=== PATIENT | male | born 1940 | race Caucasian/White ===

== ENCOUNTER 2017-03-14 17:07 | Outpatient (CLI) | payer MEDICARE, OTHER ==
[2017-03-14 17:28] LABS: BILIRUBIN,URINE NEGATIVE (NEGATIVE)
[2017-03-14 17:31] LABS: BASOPHILS # (AUTO) 0.1 10^3/uL (0.0-0.1); BASOPHILS % (AUTO) 0.8 %; EOSINOPHILS # (AUTO) 0.2 10^3/uL (0.0-0.7); EOSINOPHILS % (AUTO) 2.1 %; HCT - HEMATOCRIT 45.9 % (42.0-52.0); HGB - HEMOGLOBIN 15.8 g/dL (14.0-18.0); LYMPHOCYTES # (AUTO) 3.3 10^3/uL (1.5-3.5); LYMPHOCYTES % (AUTO) 41.2 %; MEAN CORPUSCULAR HEMOGLOBIN 34.1 pg (27.0-31.0); MEAN CORPUSCULAR HGB CONC 34.4 g/dL (32.0-36.0); MEAN CORPUSCULAR VOLUME 99.1 fL (80.0-94.0); MEAN PLATELET VOLUME 7.3 fL (7.4-11.4); MONOCYTES # (AUTO) 0.8 10^3/uL (0.0-1.0); MONOCYTES % (AUTO) 10.7 %; NEUTROPHILS # (AUTO) 3.6 10^3/uL (1.5-6.6); NEUTROPHILS % (AUTO) 45.2 %; NUCLEATED RED BLOOD CELLS AUTO 0.1 /100WBC; RED BLOOD COUNT 4.64 10^6/uL (4.70-6.10); RED CELL DISTRIBUTION WIDTH 12.7 % (12.0-15.0)
[2017-03-14 17:35] LABS: WBC,URINE 0-3 /HPF (0-3)
[2017-03-14 17:36] LABS: UR CULTURE IF IND NOT INDICATED
[2017-03-14 17:46] LABS: ALBUMIN/GLOBULIN RATIO 1.7 (1.0-2.2); BILIRUBIN,TOTAL 0.7 mg/dL (0.2-1.0); BUN - BLOOD UREA NITROGEN 24 mg/dL (6-20); CALCIUM 8.8 mg/dL (8.5-10.3); CARBON DIOXIDE - CO2 29 mmol/L (21-32); CHLORIDE 101 mmol/L (101-111); CREATININE 0.9 mg/dL (0.6-1.2); GFR - MDRD 82 (>89); GLUCOSE 112 mg/dL (70-100); POTASSIUM 3.7 mmol/L (3.5-5.0); SODIUM 137 mmol/L (135-145); TOTAL PROTEIN 7.5 g/dL (6.7-8.2)
== END 2017-03-14 17:08 | disposition home or self-care (01) ==
LOC: LAB 17:07
PROVIDERS: ATTEND Physician Assistant Medical
DX: R82.99 Other abnormal findings in urine (principal); R10.9 Unspecified abdominal pain
CPT/HCPCS: 36415; 80053; 81001; 81003; 85025; 85651; 86140; 87086

== ENCOUNTER 2017-03-16 10:41 | Outpatient (CLI) | payer MEDICARE, OTHER ==
[2017-03-16] MEDS ORDERED: IOPAMIDOL-300 100 ML VIAL ONE (11:09)
[2017-03-16] MEDS ORDERED: IOPAMIDOL-300 50 ML VIAL ONE (11:09)
[2017-03-16] MEDS ORDERED: IOPAMIDOL-300 100 ML VIAL IVP ONE (11:43)
--- NOTE | 2017-03-16 17:07 | CT Report ---
CT IVP: 03/16/2017 CLINICAL INDICATION: Hematuria. Axial CT images of the abdomen and pelvis were obtained prior to and following 100 mL Isovue-300 intr avenously, using split bolus technique. In accordance with CT protocol optimization, one or more of the following dose reduction techniques w ere utilized for this exam: automated exposure control, adjustment of mA and/or KV based on patient size, or use of iterative reconstructive technique. Limited evaluation of the lung bases demonstrates mild fibrosis. ABDOMEN: On the unenhanced images, there is a 2 mm calculus in the lower pole of the left kidney, wi thout evidence of hydronephrosis. The kidneys demonstrate prompt and symmetric uptake and excretion of contrast. Cortical cyst is noted in the upper pole of the left kidney. No solid renal lesion or collecting system lesion is appreciated. Allowing for phase of contrast enhancement, the liver, sple en, pancreas, and adrenal glands are unremarkable. The gallbladder is unremarkable. No bowel dilata tion, free gas, or free fluid is present. No abdominal adenopathy is seen. PELVIS: The distal ureters are unremarkable. The prostate indents the base of the bladder, but othe rwise the urinary bladder appears unremarkable. No pelvic free fluid or adenopathy is appreciated. A few sigmoid diverticula are seen, without CT evidence of diverticulitis. Osseous structures demonstrate degenerative changes. IMPRESSION: A 2 MM NONOBSTRUCTING LEFT RENAL CALCULUS. NO EVIDENCE OF SOLID RENAL MASS OR COLLECTIN G SYSTEM MASS. JOB #: [id number] EXT JOB #:[id number]
== END 2017-03-16 10:42 | disposition home or self-care (01) ==
LOC: DI 10:41
PROVIDERS: ATTEND Physician Assistant Medical
DX: N20.0 Calculus of kidney (principal)
CPT/HCPCS: 74178; Q9967

== ENCOUNTER 2017-03-27 08:00 | Outpatient (CLI) | payer MEDICARE, OTHER ==
[2017-03-27 15:05] LABS: CHOL/HDL RATIO 3.3 (<5.0); CHOLESTEROL 168 mg/dL; HDL CHOLESTEROL 51 mg/dL; LDL/HDL RATIO 1.9 (<3.6); TRIGLYCERIDES 88 mg/dL; VLDL CHOLESTEROL 18 mg/dL
[2017-03-27 16:55] LABS: HEMOGLOBIN A1C 0.57 g/dL
== END 2017-03-27 08:01 | disposition home or self-care (01) ==
LOC: LAB.R 08:00
PROVIDERS: ATTEND Physician Assistant Medical
DX: N40.0 Benign prostatic hyperplasia without lower urinary tract symptoms (principal); Z79.899 Other long term (current) drug therapy; R73.9 Hyperglycemia, unspecified; E55.9 Vitamin D deficiency, unspecified
CPT/HCPCS: 80061; 82306; 83036; 84153

== ENCOUNTER 2017-06-20 15:25 | Outpatient (CLI) | payer MEDICARE, OTHER ==
[2017-06-20 13:09] LABS: BASOPHILS % (AUTO) 0.7 %; EOSINOPHILS # (AUTO) 0.3 10^3/uL (0.0-0.7); EOSINOPHILS % (AUTO) 5.4 %; HGB - HEMOGLOBIN 15.4 g/dL (14.0-18.0); LYMPHOCYTES # (AUTO) 2.3 10^3/uL (1.5-3.5); LYMPHOCYTES % (AUTO) 38.7 %; MEAN CORPUSCULAR HEMOGLOBIN 33.8 pg (27.0-31.0); MEAN CORPUSCULAR HGB CONC 34.6 g/dL (32.0-36.0); MEAN CORPUSCULAR VOLUME 97.6 fL (80.0-94.0); MEAN PLATELET VOLUME 7.8 fL (7.4-11.4); MONOCYTES # (AUTO) 0.5 10^3/uL (0.0-1.0); MONOCYTES % (AUTO) 9.1 %; NEUTROPHILS # (AUTO) 2.7 10^3/uL (1.5-6.6); NEUTROPHILS % (AUTO) 46.1 %; PLT - PLATELET COUNT 187 10^3/uL (130-450); RED BLOOD COUNT 4.54 10^6/uL (4.70-6.10); RED CELL DISTRIBUTION WIDTH 12.3 % (12.0-15.0); WHITE BLOOD COUNT 5.8 x10^3/uL (4.8-10.8)
[2017-06-20 13:22] LABS: ALBUMIN 4.1 g/dL (3.2-5.5); ALBUMIN/GLOBULIN RATIO 1.3 (1.0-2.2); BILIRUBIN,TOTAL 0.8 mg/dL (0.2-1.0); CALCIUM 8.8 mg/dL (8.5-10.3); CREATININE 0.9 mg/dL (0.6-1.2); TOTAL PROTEIN 7.2 g/dL (6.7-8.2)
== END 2017-06-20 15:26 | disposition home or self-care (01) ==
LOC: LAB.R 15:25
PROVIDERS: ATTEND Physician Assistant Medical
DX: I10 Essential (primary) hypertension (principal); Z79.899 Other long term (current) drug therapy
CPT/HCPCS: 80053; 84443; 85025

== ENCOUNTER 2017-06-22 08:00 | Outpatient (CLI) | payer MEDICARE, OTHER ==
[2017-06-22 17:24] LABS: MEAN RETIC VALUE 105.9; RED BLOOD COUNT 4.51 10^6/uL (4.70-6.10)
[2017-06-22 18:36] LABS: FOLATE 14.67 ng/mL (5.90 - >24.8)
== END 2017-06-22 08:01 | disposition home or self-care (01) ==
LOC: LAB.R 08:00
PROVIDERS: ATTEND Physician Assistant Medical
DX: D75.89 Other specified diseases of blood and blood-forming organs (principal)
CPT/HCPCS: 82607; 82728; 82746; 83010; 85044; 86880

== ENCOUNTER 2018-03-20 08:46 | Outpatient (CLI) | payer MEDICARE, OTHER ==
[2018-03-20 09:13] LABS: BASOPHILS # (AUTO) 0.1 10^3/uL (0.0-0.1); BASOPHILS % (AUTO) 0.9 %; EOSINOPHILS # (AUTO) 0.2 10^3/uL (0.0-0.7); EOSINOPHILS % (AUTO) 4.1 %; HGB - HEMOGLOBIN 16.5 g/dL (14.0-18.0); LYMPHOCYTES # (AUTO) 2.6 10^3/uL (1.5-3.5); LYMPHOCYTES % (AUTO) 42.9 %; MEAN CORPUSCULAR HEMOGLOBIN 34.3 pg (27.0-31.0); MEAN CORPUSCULAR VOLUME 97.9 fL (80.0-94.0); MEAN PLATELET VOLUME 7.4 fL (7.4-11.4); MONOCYTES # (AUTO) 0.6 10^3/uL (0.0-1.0); MONOCYTES % (AUTO) 10.6 %; NEUTROPHILS # (AUTO) 2.5 10^3/uL (1.5-6.6); NEUTROPHILS % (AUTO) 41.5 %; PLT - PLATELET COUNT 188 10^3/uL (130-450); RED BLOOD COUNT 4.82 10^6/uL (4.70-6.10); RED CELL DISTRIBUTION WIDTH 12.6 % (12.0-15.0)
[2018-03-20 09:27] LABS: ALBUMIN 4.2 g/dL (3.2-5.5); ALBUMIN/GLOBULIN RATIO 1.4 (1.0-2.2); ALKALINE PHOSPHATASE 61 IU/L (42-121); ALT ALANINE AMINOTRANSFERASE 21 IU/L (10-60); AST ASPARTATE AMINOTRANSFERASE 24 IU/L (10-42); BUN - BLOOD UREA NITROGEN 21 mg/dL (6-20); CALCIUM 9.2 mg/dL (8.5-10.3); CARBON DIOXIDE - CO2 31 mmol/L (21-32); CHLORIDE 103 mmol/L (101-111); CHOL/HDL RATIO 3.7 (<5.0); CHOLESTEROL 194 mg/dL; CREATININE 0.9 mg/dL (0.6-1.2); GFR - MDRD 82 (>89); GLUCOSE 111 mg/dL (70-100); HDL CHOLESTEROL 53 mg/dL; LDL CHOLESTEROL,CALCULATED 126 mg/dL; LDL/HDL RATIO 2.4 (<3.6); SODIUM 141 mmol/L (135-145); TOTAL PROTEIN 7.3 g/dL (6.7-8.2); VLDL CHOLESTEROL 15 mg/dL
== END 2018-03-20 08:47 | disposition home or self-care (01) ==
LOC: LAB 08:46
PROVIDERS: ATTEND Physician Assistant Medical
DX: E55.9 Vitamin D deficiency, unspecified (principal); Z79.899 Other long term (current) drug therapy; Z12.5 Encounter for screening for malignant neoplasm of prostate; R00.2 Palpitations; I10 Essential (primary) hypertension
CPT/HCPCS: 36415; 80053; 80061; 82306; 84443; 85025; G0103; 83721; 84153

== ENCOUNTER 2018-06-16 09:27 | Emergency (ER) | payer MEDICARE, OTHER ==
[2018-06-16 10:21] LABS: BASOPHILS # (AUTO) 0.1 10^3/uL (0.0-0.1); BASOPHILS % (AUTO) 0.9 %; EOSINOPHILS # (AUTO) 0.2 10^3/uL (0.0-0.7); EOSINOPHILS % (AUTO) 3.8 %; HGB - HEMOGLOBIN 14.7 g/dL (14.0-18.0); LYMPHOCYTES % (AUTO) 31.5 %; MEAN CORPUSCULAR HEMOGLOBIN 34.8 pg (27.0-31.0); MEAN CORPUSCULAR HGB CONC 35.6 g/dL (32.0-36.0); MEAN CORPUSCULAR VOLUME 97.6 fL (80.0-94.0); MEAN PLATELET VOLUME 6.9 fL (7.4-11.4); MONOCYTES # (AUTO) 0.7 10^3/uL (0.0-1.0); MONOCYTES % (AUTO) 10.7 %; NEUTROPHILS # (AUTO) 3.5 10^3/uL (1.5-6.6); NEUTROPHILS % (AUTO) 53.1 %; PLT - PLATELET COUNT 165 10^3/uL (130-450); RED BLOOD COUNT 4.24 10^6/uL (4.70-6.10); RED CELL DISTRIBUTION WIDTH 12.4 % (12.0-15.0); WHITE BLOOD COUNT 6.5 x10^3/uL (4.8-10.8)
[2018-06-16 10:34] LABS: ALBUMIN 3.5 g/dL (3.2-5.5); ALBUMIN/GLOBULIN RATIO 1.3 (1.0-2.2); BILIRUBIN,TOTAL 1.3 mg/dL (0.2-1.0); CALCIUM 8.5 mg/dL (8.5-10.3); CREATININE 0.8 mg/dL (0.6-1.2); TOTAL PROTEIN 6.1 g/dL (6.7-8.2)
[2018-06-16 10:37] LABS: BILIRUBIN,URINE NEGATIVE (NEGATIVE); GLUCOSE, URINE (UA) NEGATIVE (NEGATIVE); KETONES,URINE (UA) NEGATIVE (NEGATIVE); LEUKOCYTE ESTERASE, URINE NEGATIVE (NEGATIVE); NITRITE,URINE NEGATIVE (NEGATIVE); OCCULT BLOOD,URINE NEGATIVE (NEGATIVE); PROTEIN,URINE NEGATIVE (NEGATIVE); UROBILINOGEN,URINE 0.2 (NORMAL) E.U./dL (NORMAL)
[2018-06-16 10:38] LABS: CLARITY,URINE CLEAR (CLEAR)
--- NOTE | 2018-06-16 11:13 | CT Report ---
Reason: dizzy Procedure Date: 06/16/2018 Accession Number: [id number] / [id number] Procedure: CT - Head W/O CPT Code: FULL RESULT: EXAM: CT HEAD EXAM DATE: 06/16/2018 10:42 AM. CLINICAL HISTORY: Dizzy. COMPARISON: None. TECHNIQUE: Multiaxial CT images were obtained from the foramen magnum to the vertex. Reformats: Sagittal and coronal. IV contrast: None. In accordance with CT protocol optimization, one or more of the following dose reduction techniques were utilized for this exam: automated exposure control, adjustment of mA and/or KV based on patient size, or use of iterative reconstructive technique. FINDINGS: Parenchyma: No intraparenchymal hemorrhage. No evidence of mass, midline shift, or CT findings of acute infarction. Verdin-white differentiation is distinct. Mild chronic microangiopathic white matter changes are evident. Extraaxial Spaces: Normal for age. No subdural or epidural collections identified. Ventricles: No hydrocephalus. No mass. No hemorrhage. Sinuses and orbits: Imaged paranasal sinuses, orbits, and mastoids show no significant abnormality. Bones: No evidence of fracture or calvarial defect. Other: None. IMPRESSION: 1. Subtle areas of low attenuation in deep white matter most likely representing chronic small vessel ischemic change. No associated positive mass-effect or loss of verdin-white differentiation. No other finding suspicious for acute or subacute stroke. Possibility of stroke not excluded on noncontrast CT. If indicated clinically, further assessment with MRI could also be considered. 2. Exam is otherwise as above. RADIA
--- NOTE | 2018-06-16 11:23 | ED Physician Documentation ---
History of Present Illness - Stated complaint Stated Complaint: NAUSEA/DIZZY - Chief complaint Chief Complaint: Abd Pain - History obtained from History obtained from: Patient, Family - History of Present Illness Timing: How many hours ago (4) Pain level max: 0 Pain level now: 0 - Additonal information Additional information: 77-year-old male with history of hypertension, borderline diabetes here with complaint of waking up at 3:00 in the morning to go to the bathroom feeling dizzy and associated with nausea And general weakness. Patient denies any associated fever, headaches or visual changes, Weakness on one side or difficulty speaking. Review of Systems Ten Systems: 10 systems reviewed and negative Constitutional: denies: Fever, Chills, Myalgias, Fatigue Eyes: denies: Loss of vision, Decreased vision Nose: denies: Rhinorrhea / runny nose Cardiac: denies: Chest pain / pressure Respiratory: denies: Dyspnea, Cough GI: reports: Nausea. denies: Abdominal Pain, Vomiting, Diarrhea : denies: Dysuria, Frequency Musculoskeletal: denies: Neck pain, Back pain, Extremity pain Neurologic: reports: Generalized weakness. denies: Focal weakness, Numbness, Difficulty speaking, Near syncope, Syncope, Confused, Altered mental status, Unresponsive, Headache, Head injury, LOC PD PAST MEDICAL HISTORY - Past Medical History Cardiovascular: None Endocrine/Autoimmune: None GI: None : Frequency HEENT: Chronic hearing loss Musculoskeletal: Chronic back pain Derm: None - Past Surgical History General: Appendectomy, Colonoscopy HEENT: Tonsil/Adenoidectomy - Present Medications Home Medications: Ambulatory Orders Medication Instructions Recorded Confirmed Aspirin [Children's Aspirin] 81 mg PO 04/01/13 04/01/13 Ascorbic Acid [Vitamin C] 60 mg PO 04/02/13 04/02/13 Calcium [Calcio Raoul] 500 mg PO 04/02/13 04/02/13 Cholecalciferol (Vitamin D3) 1,000 unit PO 04/02/13 04/02/13 [Vitamin D] Multivitamin [Multivitamins] 1 each PO 04/02/13 04/02/13 Atorvastatin Calcium 06/16/18 Irbesartan 06/16/18 Loratadine 06/16/18 - Allergies Allergies/Adverse Reactions: Allergies Allergy/AdvReac Type Severity Reaction Status Date / Time penicillin G Allergy Severe Hives Verified 06/16/18 09:41 Sulfa (Sulfonamide Allergy Severe Hives Verified 06/16/18 09:41 Antibiotics) - Social History Does the pt smoke?: No Smoking Status: Never smoker Does the pt drink ETOH?: Yes Does the pt have substance abuse?: No - Immunizations Immunizations are current?: Yes PD ED PE NORMAL - Vitals Vital signs reviewed: Yes - General General: Alert and oriented X 3, No acute distress, Well developed/nourished - HEENT HEENT: Atraumatic, PERRL, EOMI, Moist mucous membranes, Pharynx benign - Neck Neck: Supple, no meningeal sign - Cardiac Cardiac: RRR, No murmur, Strong equal pulses - Respiratory Respiratory: No respiratory distress, Clear bilaterally - Abdomen Abdomen: Normal bowel sounds, Soft, Non tender, Non distended - Back Back: No CVA TTP, No spinal TTP - Derm Derm: Normal color, Warm and dry - Extremities Extremities: No deformity, No tenderness to palpate, Normal ROM s pain, No edema - Neuro Neuro: Alert and oriented X 3, 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, No motor deficit, No sensory deficit, Normal speech - Psych Psych: Normal mood, Normal affect Results - Vitals Vitals: Vital Signs - 24 hr 06/16/18 06/16/18 06/16/18 09:35 10:30 11:20 Temperature 36.1 C L Heart Rate 50 L 51 L Heart Rate [ Sitting] Heart Rate [ Standing] Heart Rate [ 50 L Supine] Respiratory 16 16 Rate Blood Pressure 149/70 H 136/63 H Blood Pressure [Sitting] Blood Pressure [Standing] Blood Pressure 126/64 [Supine] O2 Saturation 98 98 06/16/18 06/16/18 06/16/18 11:21 11:22 12:00 Temperature Heart Rate 50 L Heart Rate [ 49 L Sitting] Heart Rate [ 63 Standing] Heart Rate [ Supine] Respiratory 16 Rate Blood Pressure 115/51 L Blood Pressure 130/66 [Sitting] Blood Pressure 131/76 H [Standing] Blood Pressure [Supine] O2 Saturation 96 06/16/18 12:35 Temperature Heart Rate Heart Rate [ 57 L Sitting] Heart Rate [ 70 Standing] Heart Rate [ 53 L Supine] Respiratory Rate Blood Pressure Blood Pressure 127/58 L [Sitting] Blood Pressure 139/69 H [Standing] Blood Pressure 114/44 L [Supine] O2 Saturation Oxygen O2 Source Room air - EKG (time done) 0967 Rate: Rate (enter#) (50) Rhythm: Sinus bradycardia [place]: Normal Intervals: Normal [place] QRS: Normal Ischemia: Normal ST segments Compare to prior EKG: Unchanged from prior EKG (08/19/15) - Labs Labs: Laboratory Tests 06/16/18 06/16/18 06/16/18 10:15 10:15 10:15 WBC 6.5 RBC 4.24 L Hgb 14.7 Hct 41.4 L MCV 97.6 H MCH 34.8 H MCHC 35.6 RDW 12.4 Plt Count 165 MPV 6.9 L Neut # (Auto) 3.5 Lymph # (Auto) 2.0 [place] # (Auto) 0.7 Eos # (Auto) 0.2 Baso # (Auto) 0.1 Absolute Nucleated RBC 0.00 Nucleated RBC % 0.0 Sodium 138 Potassium 4.3 Chloride 104 Carbon Dioxide 29 Anion Gap 5.0 L BUN 19 Creatinine 0.8 Estimated GFR (MDRD) 93 Glucose 113 H Calcium 8.5 Total Bilirubin 1.3 H AST 26 ALT 26 Alkaline Phosphatase 50 Troponin I 0.04 B-Natriuretic Peptide Total Protein 6.1 L Albumin 3.5 Globulin 2.6 Albumin/Globulin Ratio 1.3 Lipase 23 Urine Color Urine Clarity Urine pH Ur Specific [place] Urine Protein Urine Glucose (UA) Urine Ketones Urine Occult Blood Urine Nitrite Urine Bilirubin Urine Urobilinogen Ur Leukocyte Esterase Ur Microscopic Review Urine Culture Comments 06/16/18 06/16/18 10:15 10:25 WBC RBC Hgb Hct MCV MCH MCHC RDW Plt Count MPV Neut # (Auto) Lymph # (Auto) [place] # (Auto) Eos # (Auto) Baso # (Auto) Absolute Nucleated RBC Nucleated RBC % Sodium Potassium Chloride Carbon Dioxide Anion Gap BUN Creatinine Estimated GFR (MDRD) Glucose Calcium Total Bilirubin AST ALT Alkaline Phosphatase Troponin I B-Natriuretic Peptide 48 Total Protein Albumin Globulin Albumin/Globulin Ratio Lipase Urine Color YELLOW Urine Clarity CLEAR Urine pH 8.0 H Ur Specific [place] 1.015 Urine Protein NEGATIVE Urine Glucose (UA) NEGATIVE Urine Ketones NEGATIVE Urine Occult Blood NEGATIVE Urine Nitrite NEGATIVE Urine Bilirubin NEGATIVE Urine Urobilinogen 0.2 (NORMAL) Ur Leukocyte Esterase NEGATIVE Ur Microscopic Review NOT INDICATED Urine Culture Comments NOT INDICATED PD MEDICAL DECISION MAKING - ED course Complexity details: reviewed results, re-evaluated patient, considered differential (Vertigo, intracranial bleed, anemia, electrolyte imbalance, dehydration), d/w patient, d/w family ED course: 1116 patient and spouse informed of test results. Agreed to orthostatic vital signs. Patient's RN did do orthostatic and inform me that patient complained of dizziness when he stood up. Will provide IV hydration and feed the patient. 1320 after patient had a liter of IV fluid and had some lunch orthostatic was done. Patient had no complaint of dizziness and his vitals were stable. Patient states he is now ready to go home. Per this had happened before when he was not drinking enough fluids. Patient stated he does not like drinking water or Gatorade or soup. Encourage patient to do so so he does not have this problem again. Patient and instructed to follow-up with your primary doctor and senior investigator for reevaluation Departure - Departure Disposition: 01 Home, Self Care Clinical Impression: Dizziness Condition: Stable Instructions: ED Dizziness [facility] Comments: Make sure you drink enough fluids like water, Gatorade.Follow-up with your primary doctor and senior investigator and inform them of your ER visit for dizziness. You should be able to get all the information of the test from medical records in 2 days after the holidays. If worse return to the emergency room.
[2018-06-16] MEDS ORDERED: SODIUM CHLORIDE 0.9% 1,000 ML IV ONE (11:33)
--- NOTE | 2018-06-16 11:56 | XRAY Report ---
Reason: chest pain Procedure Date: 06/16/2018 Accession Number: [id number] / [id number] Procedure: XR - Chest 1 View X-Ray CPT Code: 53830 FULL RESULT: EXAM: CHEST RADIOGRAPHY EXAM DATE: 06/16/2018 10:51 AM. CLINICAL HISTORY: Chest pain. COMPARISON: None available. TECHNIQUE: 1 view. FINDINGS: Lungs/Pleura: There is minor dependent atelectasis. No acute infiltrate or consolidation. No pneumothorax or large pleural effusion. Mediastinum: Within exam limitations, the cardiomediastinal contour is normal. Other: None. IMPRESSION: Minor bibasilar atelectasis, otherwise grossly clear lungs. RADIA
[2018-06-16 13:53] VITALS: BP 124/56
== END 2018-06-16 13:48 | disposition home or self-care (01) ==
LOC: ED 09:27
DX: R42 Dizziness and giddiness (principal); I10 Essential (primary) hypertension; Z79.82 Long term (current) use of aspirin
CPT/HCPCS: 36415; 70450; 71045; 80053; 81001; 81003; 83690; 83880; 84484; 85025; 87086; 93005; 96360; 99283; 99284

== ENCOUNTER 2018-08-28 09:50 | Outpatient (CLI) | payer MEDICARE, OTHER ==
[2018-08-28 10:36] LABS: CHOL/HDL RATIO 2.3 (<5.0); CHOLESTEROL 110 mg/dL; HDL CHOLESTEROL 47 mg/dL; LDL CHOLESTEROL,CALCULATED 52 mg/dL; LDL/HDL RATIO 1.1 (<3.6); VLDL CHOLESTEROL 11 mg/dL
== END 2018-08-28 09:51 | disposition home or self-care (01) ==
LOC: LAB 09:50
PROVIDERS: ATTEND Internal Medicine Cardiovascular Disease
DX: E78.5 Hyperlipidemia, unspecified (principal)
CPT/HCPCS: 36415; 80061; 83721

== ENCOUNTER 2019-02-27 07:04 | Outpatient (CLI) | payer MEDICARE, OTHER ==
[2019-02-27 07:25] LABS: BASOPHILS # (AUTO) 0.1 10^3/uL (0.0-0.1); BASOPHILS % (AUTO) 0.8 %; EOSINOPHILS # (AUTO) 0.2 10^3/uL (0.0-0.7); EOSINOPHILS % (AUTO) 3.6 %; HGB - HEMOGLOBIN 15.6 g/dL (14.0-18.0); LYMPHOCYTES # (AUTO) 3.2 10^3/uL (1.5-3.5); LYMPHOCYTES % (AUTO) 48.2 %; MEAN CORPUSCULAR HEMOGLOBIN 34.7 pg (27.0-31.0); MEAN CORPUSCULAR HGB CONC 34.7 g/dL (32.0-36.0); MONOCYTES # (AUTO) 0.7 10^3/uL (0.0-1.0); MONOCYTES % (AUTO) 10.8 %; NEUTROPHILS # (AUTO) 2.4 10^3/uL (1.5-6.6); NEUTROPHILS % (AUTO) 36.1 %; PLT - PLATELET COUNT 161 10^3/uL (130-450); RED BLOOD COUNT 4.49 10^6/uL (4.70-6.10); RED CELL DISTRIBUTION WIDTH 12.4 % (12.0-15.0); WHITE BLOOD COUNT 6.6 x10^3/uL (4.8-10.8)
[2019-02-27 07:43] LABS: ALBUMIN 3.9 g/dL (3.2-5.5); ALBUMIN/GLOBULIN RATIO 1.5 (1.0-2.2); ALKALINE PHOSPHATASE 47 IU/L (42-121); ALT ALANINE AMINOTRANSFERASE 17 IU/L (10-60); AST ASPARTATE AMINOTRANSFERASE 23 IU/L (10-42); BUN - BLOOD UREA NITROGEN 24 mg/dL (6-20); CALCIUM 8.7 mg/dL (8.5-10.3); CARBON DIOXIDE - CO2 31 mmol/L (21-32); CHLORIDE 104 mmol/L (101-111); CHOL/HDL RATIO 3.5 (<5.0); CHOLESTEROL 173 mg/dL; GFR - MDRD 72 (>89); GLUCOSE 106 mg/dL (70-100); HDL CHOLESTEROL 49 mg/dL; LDL CHOLESTEROL,CALCULATED 109 mg/dL; LDL/HDL RATIO 2.2 (<3.6); SODIUM 142 mmol/L (135-145); TOTAL PROTEIN 6.5 g/dL (6.7-8.2); VLDL CHOLESTEROL 15 mg/dL
[2019-02-27 08:09] LABS: HB2 TOTAL 15.6 g/dL; HEMOGLOBIN A1C 0.53 g/dL; HEMOGLOBIN A1C % 5.3 % (4.6-6.2)
[2019-02-27 08:31] LABS: THYROID STIMULATING HORMONE 3.39 uIU/mL (0.34-5.60)
[2019-02-27 08:32] LABS: FREE T4 (FREE THYROXINE) 0.83 ng/dL (0.58-1.64)
== END 2019-02-27 07:05 | disposition home or self-care (01) ==
LOC: LAB 07:04
PROVIDERS: ATTEND Family Medicine
DX: I10 Essential (primary) hypertension (principal); R73.01 Impaired fasting glucose
CPT/HCPCS: 36415; 80053; 80061; 83036; 83721; 84439; 84443; 84481; 85025

== ENCOUNTER 2019-04-17 14:16 | Outpatient (CLI) | payer MEDICARE, OTHER ==
--- NOTE | 2019-04-17 16:09 | XRAY Report ---
Reason: OLECRANON BURSITIS,RT/CALCANEAL SPUR LT FOOT Procedure Date: 04/17/2019 Accession Number: [id number] / [id number] Procedure: XR - Foot 3 View LT CPT Code: Final Report FULL RESULT: EXAM: LEFT FOOT RADIOGRAPHY EXAM DATE: 04/17/2019 02:30 PM. CLINICAL HISTORY: OLECRANON BURSITIS,RT/CALCANEAL SPUR LT FOOT. COMPARISON: None. TECHNIQUE: 3 views. FINDINGS: Bones: A very tiny calcaneal spur noted. No fractures or bone lesions. Joints: Normal. No subluxations. Soft Tissues: Normal. No soft tissue swelling. IMPRESSION: A very tiny calcaneal spur. No acute displaced fracture or malalignment. Unremarkable soft tissues. RADIA
--- NOTE | 2019-04-17 16:13 | XRAY Report ---
Reason: OLECRANON BURSITIS,RT/CALCANEAL SPUR LT FOOT Procedure Date: 04/17/2019 Accession Number: [id number] / [id number] Procedure: XR - Elbow 2 View RT CPT Code: Final Report FULL RESULT: EXAM: RIGHT ELBOW RADIOGRAPHY EXAM DATE: 04/17/2019 02:30 PM. CLINICAL HISTORY: Olecranon bursitis, right. Calcaneal spur left foot. COMPARISON: None. TECHNIQUE: 3 views. FINDINGS: Bones: Normal. No fractures or bone lesions. Joints: Normal. No definite effusion although some rotation of the distal humerus on the lateral view decreases the sensitivity for detecting a small effusion. No subluxation. Soft Tissues: Mild focal soft tissue prominence/swelling dorsal to the proximal olecranon. IMPRESSION: 1. No osseous abnormality. 2. Dorsal soft tissue prominence/swelling. This is compatible with olecranon bursitis, although it's not specific. RADIA
== END 2019-04-17 14:17 | disposition home or self-care (01) ==
LOC: DI 14:16
PROVIDERS: ATTEND Family Medicine
DX: M70.21 Olecranon bursitis, right elbow (principal); M77.32 Calcaneal spur, left foot

== ENCOUNTER 2019-08-22 08:51 | Outpatient (CLI) | payer MEDICARE, OTHER | END 2019-08-22 08:52 | disposition home or self-care (01) | LOC: DI 08:51 | PROVIDERS: ATTEND Internal Medicine Interventional Cardiology | DX: R01.1 Cardiac murmur, unspecified (principal); I35.8 Other nonrheumatic aortic valve disorders | CPT/HCPCS: 93306 ==

== ENCOUNTER 2020-04-17 09:03 | Outpatient (CLI) | payer MEDICARE, OTHER ==
[2020-04-17 09:53] LABS: BASOPHILS % (AUTO) 0.4 %; EOSINOPHILS # (AUTO) 0.2 10^3/uL (0.0-0.7); EOSINOPHILS % (AUTO) 3.3 %; HGB - HEMOGLOBIN 15.8 g/dL (14.0-18.0); LYMPHOCYTES # (AUTO) 2.3 10^3/uL (1.5-3.5); LYMPHOCYTES % (AUTO) 50.2 %; MEAN CORPUSCULAR HEMOGLOBIN 34.7 pg (27.0-31.0); MEAN CORPUSCULAR HGB CONC 34.8 g/dL (32.0-36.0); MEAN CORPUSCULAR VOLUME 99.8 fL (80.0-94.0); MEAN PLATELET VOLUME 9.1 fL (7.4-11.4); MONOCYTES # (AUTO) 0.5 10^3/uL (0.0-1.0); MONOCYTES % (AUTO) 11.5 %; NEUTROPHILS # (AUTO) 1.5 10^3/uL (1.5-6.6); NEUTROPHILS % (AUTO) 33.3 %; PLT - PLATELET COUNT 154 10^3/uL (130-450); RED BLOOD COUNT 4.55 10^6/uL (4.70-6.10); RED CELL DISTRIBUTION WIDTH 12.3 % (12.0-15.0); WHITE BLOOD COUNT 4.5 x10^3/uL (4.8-10.8)
[2020-04-17 10:25] LABS: ALBUMIN 4.1 g/dL (3.2-5.5); ALBUMIN/GLOBULIN RATIO 1.4 (1.0-2.2); BILIRUBIN,TOTAL 1.2 mg/dL (0.2-1.0); CALCIUM 9.3 mg/dL (8.5-10.3); CREATININE 0.9 mg/dL (0.6-1.2)
== END 2020-04-17 09:04 | disposition home or self-care (01) ==
LOC: LAB 09:03
PROVIDERS: ATTEND Family Medicine
DX: I10 Essential (primary) hypertension (principal); N40.0 Benign prostatic hyperplasia without lower urinary tract symptoms; E55.9 Vitamin D deficiency, unspecified; I34.1 Nonrheumatic mitral (valve) prolapse; K21.9 Gastro-esophageal reflux disease without esophagitis; M85.80 Other specified disorders of bone density and structure, unspecified site
CPT/HCPCS: 36415; 80053; 82306; 84153; 84443; 85025

== ENCOUNTER 2020-04-23 11:05 | Outpatient (CLI) | payer MEDICARE, OTHER ==
[2020-04-23 20:04] LABS: HEMOGLOBIN A1c% 5.3 % (4.27-6.07)
== END 2020-04-23 11:06 | disposition home or self-care (01) ==
LOC: LAB.WCP 11:05
PROVIDERS: ATTEND Family Medicine
DX: R73.9 Hyperglycemia, unspecified (principal); I34.1 Nonrheumatic mitral (valve) prolapse; I10 Essential (primary) hypertension; E55.9 Vitamin D deficiency, unspecified; M85.80 Other specified disorders of bone density and structure, unspecified site; K21.9 Gastro-esophageal reflux disease without esophagitis; N40.0 Benign prostatic hyperplasia without lower urinary tract symptoms
CPT/HCPCS: 36415; 80053; 82306; 83036; 84153; 84443; 85025

== ENCOUNTER 2020-08-26 08:33 | Outpatient (CLI) | payer MEDICARE, OTHER ==
[2020-08-26 09:34] LABS: ALBUMIN/GLOBULIN RATIO 1.5 (1.0-2.2); ALKALINE PHOSPHATASE 47 IU/L (42-121); ALT ALANINE AMINOTRANSFERASE 17 IU/L (10-60); AST ASPARTATE AMINOTRANSFERASE 24 IU/L (10-42); BILIRUBIN,TOTAL 1.2 mg/dL (0.2-1.0); BUN - BLOOD UREA NITROGEN 22 mg/dL (6-20); CALCIUM 8.7 mg/dL (8.5-10.3); CARBON DIOXIDE - CO2 28 mmol/L (21-32); CHLORIDE 102 mmol/L (101-111); CHOL/HDL RATIO 3.2 (<5.0); CHOLESTEROL 178 mg/dL; CREATININE 0.9 mg/dL (0.6-1.2); GFR - MDRD 81 (>89); GLUCOSE 100 mg/dL (70-100); HDL CHOLESTEROL 55 mg/dL; LDL CHOLESTEROL,CALCULATED 113 mg/dL; LDL/HDL RATIO 2.1 (<3.6); POTASSIUM 4.1 mmol/L (3.5-5.0); SODIUM 139 mmol/L (135-145); TOTAL PROTEIN 6.7 g/dL (6.7-8.2); TRIGLYCERIDES 50 mg/dL; VLDL CHOLESTEROL 10 mg/dL
[2020-08-26 09:43] LABS: CRP HIGH SENSITIVITY < 0.5 mg/L
[2020-08-26 09:44] LABS: THYROID STIMULATING HORMONE 2.14 uIU/mL (0.34-5.60)
[2020-08-26 09:46] LABS: FREE T4 (FREE THYROXINE) 0.73 ng/dL (0.58-1.64)
== END 2020-08-26 08:34 | disposition home or self-care (01) ==
LOC: LAB 08:33
PROVIDERS: ATTEND Internal Medicine Cardiovascular Disease
DX: I25.10 Atherosclerotic heart disease of native coronary artery without angina pectoris (principal); R01.1 Cardiac murmur, unspecified; I10 Essential (primary) hypertension; E78.2 Mixed hyperlipidemia
CPT/HCPCS: 36415; 80053; 80061; 83721; 84439; 84443; 86141